=== PATIENT | female | born 1970 | race Caucasian/White ===

== ENCOUNTER 2018-04-20 21:34 | Inpatient (IN) | END 2018-05-29 18:10 | disposition home or self-care (01) | DRG 545 ==

== ENCOUNTER 2018-06-17 09:39 | Emergency (ER) | END 2018-06-17 12:21 | disposition home or self-care (01) ==

== ENCOUNTER 2018-06-27 10:19 | Emergency (ER) | END 2018-06-27 13:51 | disposition home or self-care (01) ==

== ENCOUNTER 2018-09-17 16:20 | Inpatient (IN) | END 2018-09-18 16:14 | disposition home or self-care (01) | DRG 314 ==

== ENCOUNTER 2019-01-17 12:48 | Emergency (ER) | payer MEDICARE, OTHER ==
[~2019-01-17] VITALS: Ht 154.9 cm; Wt 79.5 kg
[~2019-01-17 12:48] MED LIST: AMLO-147 PO; ATOR40TA68 PO; CALC1TAB93 PO; CALC667C PO; CARV6.2579 PO; FURO40TA4 PO; MESA500C PO; NEPH PO; NITR0.4T32 SL; ONDA4TAB13 PO; PANT40TA4 PO; PRED5TAB PO; SUCR1TAB56 PO
[2019-01-17 13:07] VITALS: BP 115/62; PULSE 105; RESP 17; Ht 154.9 cm; Wt 79.5 kg
--- NOTE | 2019-01-17 14:11 | ERD ---
ER Documentation Chief Complaint Chief Complaint RT LEG PAIN FROM GROING TO ANKLE HPI 48-year-old female, with history of end-stage renal disease on hemodialysis, presents to the emergency department, brought in by , complaining of right lower extremity pain radiating from the groin to the ankle, the pain is sharp, constant, 4/10. No history of recent trauma, the patient denies rashes, no distal weakness, numbness or tingling. ROS All systems reviewed and are negative except as per history of present illness. Medications Home Meds Active Scripts Hydrocodone/Acetaminophen (Grulla 5-325 Tablet) 1 Each Tablet, 1 TAB PO QHS PRN for PAIN, #7 TAB Prov:LA FRANK MD 01/17/19 Prednisone* (Prednisone*) 5 Mg Tab, 15 MG PO DAILY for 30 Days, #90 TAB 6 Refills Prov:LILY BARRERA MD 11/11/18 Sucralfate* (Carafate*) 1 Gm Tab, 1 GM PO Q6 for 23 Days, #92 TAB Prov:LILY BARRERA MD 11/11/18 Pantoprazole* (Pantoprazole*) 40 Mg Tablet.dr, 40 MG PO BID@06,18 for 30 Days, #60 TAB 1 Refill Prov:LILY BARRERA MD 11/11/18 Mesalamine* (Pentasa*) 500 Mg Capsule.sa, 1000 MG PO QID for 30 Days, #240 CAP 1 Refill Prov:LILY BARRERA MD 11/11/18 Atorvastatin* (Atorvastatin*) 40 Mg Tablet, 40 MG PO HS, #30 TAB 2 Refills Prov:NANO CADENA 09/18/18 Ondansetron Hcl* (Zofran*) 4 Mg Tab, 4 MG PO Q6H PRN for NAUSEA AND OR VOMITING, #60 TAB 1 Refill Prov:JARRED MATTSON 06/12/18 Reported Medications Nitroglycerin* (Nitroglycerin* SL) 0.4 Mg Tab.subl, 0.4 MG SL Q5MIN PRN for NEEDED, BOTTLE 09/17/18 Carvedilol* (Carvedilol*) 6.25 Mg Tablet, 6.25 MG PO BID, #60 TAB 09/17/18 Furosemide* (Furosemide*) 40 Mg Tablet, 40 MG PO DAILY, TAB 09/17/18 Multivit/Ca Carb/B Cmplx/Fa* (Ann-Luz Elena*) 1 Tab Tab, 1 TAB PO DAILY, TAB 06/04/18 Calcium Carbonate/Vitamin D3 (OYSTER SHELL 500 MG + VIT D TB) 1 Each Tablet, 1 EACH PO BID, TAB 06/04/18 Calcium Acetate* (Calcium Acetate*) 667 Mg Capsule, 667 MG PO WITH MEALS, #60 CAP 06/04/18 Amlodipine Besylate* (Amlodipine Besylate*) 10 Mg Tablet, 10 MG PO DAILY, #30 TAB 06/04/18 Allergies Allergies: Coded Allergies: No Known Allergy (Unverified , 09/29/18) PMhx/Soc History of Surgery: No Anesthesia Reaction: No Hx Neurological Disorder: Yes Hx Respiratory Disorders: Yes Hx Cardiac Disorders: Yes (HTN/ HYPERLIPIDEMIA) Hx Psychiatric Problems: No Hx Miscellaneous Medical Probl: Yes (chronic esophagitis, Goodpasture's syndrome, ESRD on HD, HTN, osteoporosis ) Hx Alcohol Use: No Hx Substance Use: No Hx Tobacco Use: No FmHx Family History: No diabetes, No coronary disease Physical Exam Vitals Vital Signs Date Temp Pulse Resp B/P (MAP) Pulse Ox O2 O2 Flow FiO2 Time Delivery Rate 01/17/19 97.7 105 17 115/62 97 13:07 (79) Physical Exam Const: No acute distress Head: Atraumatic Eyes: Normal Conjunctiva ENT: Normal External Ears, Nose and Mouth. Neck: Full range of motion. No meningismus. Resp: Clear to auscultation bilaterally Cardio: Regular rate and rhythm, no murmurs Abd: Soft, non tender, non distended. Normal bowel sounds Skin: No petechiae or rashes Back: No midline or flank tenderness Ext: No cyanosis, or edema Neur: Awake and alert Psych: Normal Mood and Affect Results 24 hrs Current Medications Medications Dose Sig/Mannie Start Time Status Last (Trade) Ordered Route PRN Stop Time Admin Dose Reason Admin Morphine 10 mg ONCE ONCE 01/17/19 DC 01/17/19 Sulfate PO 14:30 14:31 (morphine) 01/17/19 14:31 Patient: [address] : 1970 Age: 48 Sex: F MR #: [id number] DOS: 01/17/19 1415 Ordering MD: LA FRANK MD Location: [facility] Room/Bed: PROCEDURE: Ultrasound of the right lower extremity venous system. CLINICAL INDICATION: Right lower extremity pain and swelling. TECHNIQUE: Savage scale with and without compression, color doppler, spectral doppler of the venous system of the right lower extremity was performed. Venous augmentation maneuvers were utilized. COMPARISON: No prior studies are available for comparison. FINDINGS: RIGHT: Common femoral vein: Patent and compressible. Femoral vein: Patent and compressible. Popliteal vein: Patent and compressible. Visualized calf veins: Patent and compressible. Soft tissues: Normal IMPRESSION: No evidence of deep vein thrombosis. Patient: [address] : 1970 Age: 48 Sex: F MR #: [id number] DOS: 01/17/19 1415 Ordering MD: LA FRANK MD Location: [facility] Room/Bed: PROCEDURE: XR Tibia and Fibula. CLINICAL INDICATION: Pain. Possible stress fracture. TECHNIQUE: Two views of the right tibia and fibula are available for review. COMPARISON: None available FINDINGS: There is no acute osseous or articular abnormality. No evidence for fracture. Bone mineral density is preserved. The articular surfaces are smooth without evidence of marginal erosions. The soft tissues are intact without evidence of calcifications. IMPRESSION: 1. No acute osseous abnormality. Procedures/MDM Acute right lower extremity pain: no red flags. Differential diagnosis include but not limited to: Musculoskeletal injury, arthritis, fracture, DVT; low suspicion for acute limb ischemia, septic arthritis, necrotizing fasciitis, compartment syndrome. Neurovascular exam grossly intact. no clinical findings suggestive of acute infectious process, no acute deformity, no edema, no rashes. Physical examination and clinical presentation consistent most likely with right lower extremity pain. During the ED course the patient received treatment with morphine p.o. presenting overall improvement of the symptoms. Results and clinical impression discussed with the patient who agrees with management. The patient is stable to be treated outpatient and will be discharged home with recommendations for ice, rest and close monitoring. The patient was instructed to follow up with the primary care provider in the next 48h. If symptoms persist, worsen or new symptoms develop, then patient should return to the ED immediately. Instructions explained and given to patient with acknowledgment and demonstrated understanding. Disclaimer: Inadvertent spelling and grammatical errors are likely due to EHR/dictation software use and do not reflect on the overall quality of patient care. Also, please note that the electronic time recorded on this note does not necessarily reflect the actual time of the patient encounter. Departure Diagnosis: Primary Impression: Pain of right leg Condition: Stable Additional Instructions: Thank you very much for allowing us to participate in your care. Your health and safety is our top priority at [facility]. Call your primary care doctor TOMORROW for an appointment during the next 2-4 days and bring all the information and medications prescribed. Have prescriptions filled and follow precisely the directions on the label. If the symptoms get worse and your provider is unavailable, return to the Emergency Department immediately. LA FRANK MD Jan 17, 2019 14:11
[2019-01-17] MEDS ORDERED: morphine LIQ (10 MG/5 ML) CUP PO ONE (14:30)
[2019-01-17] MEDS ORDERED: HYDR-4011 PO (15:31)
== END 2019-01-17 15:46 | disposition home or self-care (01) ==
LOC: FTE 12:48
DX: M79.604 Pain in right leg (principal)
CPT/HCPCS: 73590; 93971